=== PATIENT | female | born 1965 | race Caucasian/White ===

== ENCOUNTER 2019-04-16 17:10 | Emergency (ER) | payer OTHER ==
[2019-04-16 18:30] VITALS: BP 154/68
--- NOTE | 2019-04-16 18:59 | UC ---
Respiratory Complaint HPI - HPI Summary HPI Summary: 53 year old female with 2 weeks of a cough, runny nose, AZEVEDO since today, sore throat since today. no fever, chills. NO GI upset, no TOb use. No SOB, ear pain, sinus pain/ tenderness. AZEVEDO mild. PMH + for brain tumor s/p resection - History of Current Complaint Chief Complaint: UCRespiratory Stated Complaint: COLD SYMPTOMS Time Seen by Provider: 04/16/19 18:41 Hx Obtained From: Patient ?: No Onset/Duration: Sudden Onset, Lasting Weeks - almost 2 weeks Timing: Constant Severity Initially: Moderate Severity Currently: Moderate Pain Intensity: 3 Pain Scale Used: 0-10 Numeric Character: Cough: Nonproductive Aggravating Factors: Deep Breaths Associated Signs And Symptoms: Positive: URI, Nasal Congestion. Negative: Fever , Chills, Wheezing, Dizziness, Calf Pain, Calf Swelling, Edema - Allergies/Home Medications Allergies/Adverse Reactions: Allergies Allergy/AdvReac Type Severity Reaction Status Date / Time No Known Allergies Allergy Verified 04/16/19 18:22 Home Medications: Home Medications Phenylephrine/Dm/Acetaminop/GG [Mucinex Bbnb-Gcq-Poigjxotnu Lq] 177 ml PO Q12HR PRN 04/16/19 [History Confirmed 04/16/19] Tolterodine (NF) [Detrol (NF)] 1 mg PO DAILY 04/16/19 [History Confirmed ] PMH/Surg Hx/FS Hx/Imm Hx Previously Healthy: No - h/o brain tumor s/p resection - Surgical History Surgical History: Yes Surgery Procedure, Year, and Place: partial hysterectomy. 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 Negative: Dental Pain, Ear Ache, Nasal Discharge, Sinus Congestion, Sinus Pain/Tenderness Respiratory: Positive: Cough. Negative: Shortness Of Breath Cardiovascular: Negative: Palpitations, Chest Pain Gastrointestinal: Negative: Abdominal Pain Neurological: Positive: Headache Is Patient Immunocompromised?: No Physical Exam Triage Information Reviewed: Yes Appearance: Well-Appearing, No Pain Distress, Well-Nourished Vital Signs: Initial Vital Signs Temp 99.0 F 04/16/19 18:25 Pulse 99 04/16/19 18:25 Resp 18 04/16/19 18:25 BP 154/68 04/16/19 18:25 Pulse Ox 100 04/16/19 18:25 Vital Signs Reviewed: Yes Eyes: Positive: Conjunctiva Clear ENT: Positive: Pharynx normal, TMs normal, Uvula midline. Negative: Pharyngeal erythema, Nasal congestion, TM bulging, TM dull - ~ 75% cerumen b/l, Tonsillar swelling, Tonsillar exudate, Sinus tenderness - b/l Neck: Positive: Supple, No Lymphadenopathy, Tenderness @ - mild TTP submand right sided Respiratory: Positive: Chest non-tender, Lungs clear, Normal breath sounds, No respiratory distress, No accessory muscle use. Negative: Respiratory distress, Decreased breath sounds, Accessory muscle use, Crackles, Rhonchi, Stridor, Wheezing, Expiration Cardiovascular: Positive: RRR, Murmur:Sys:Grade _?_/ - 3 Neurological Exam: Normal Psychological Exam: Normal Skin Exam: Normal Skin: Negative: Rashes Respiratory Course/Dx - Course Course Of Treatment: VIral URI with acute bronchitis - - Increase fluid intake - Over the counter medications as needed for pain, symptoms - Humidifier at night to help with symptoms - Tessalon perles to help with cough as needed - FOllow up with primary physician if no improvement within 2-3 days - Differential Dx/Diagnosis Differential Diagnosis/HQI/PQRI: Asthma, Sinusitis Provider Diagnosis: Viral URI Discharge ED - Sign-Out/Discharge Documenting (check all that apply): Patient Departure All imaging exams completed and their final reports reviewed: No Studies - Discharge Plan Condition: Good Disposition: HOME Prescriptions: Benzonatate CAP* [Tessalon 100 MG CAP*] 100 mg PO TID PRN #[id number] cap PRN Reason: Cough Patient Education Materials: Viral Syndrome (ED) Referrals: Sandhya Foster DO [Primary Care Provider] - Additional Instructions: - Increase fluid intake - Over the counter medications as needed for pain, symptoms - Humidifier at night to help with symptoms - Tessalon perles to help with cough as needed - FOllow up with primary physician if no improvement within 2-3 days - Billing Disposition and Condition Condition: GOOD Disposition: Home
== END 2019-04-16 19:27 | disposition home or self-care (01) ==
LOC: UCEAST 17:10
DX: J06.9 Acute upper respiratory infection, unspecified (principal)
CPT/HCPCS: 87651; 99202; G0463